=== PATIENT | female | born 1965 | race Caucasian/White ===

== ENCOUNTER 2017-04-30 16:32 | Emergency (ER) | payer BC ==
[2017-04-30 16:39] VITALS: BP 127/74
[2017-04-30] MEDS ORDERED: Albuterol/Ipratropium NEB.SOL* Albuterol 2.5 MG/Ipratropium 0.5 MG 3 ML INH ONE (17:05)
--- NOTE | 2017-04-30 17:23 | UC ---
Dori Garay Thomas, scribed for Chandni García MD on 04/30/17 at 1650 . Respiratory Complaint HPI - HPI Summary HPI Summary: The pt is a 52 y/o F presenting to [facility] c/o an upper respiratory infection that began four days ago. Symptoms include wheezing, rhinorrhea, ear pain, SOB, CORADO, eye pain, and cough. She has had intermittent nasal drainage of blood, but the drainage is mostly yellow. The patient has treated the symptoms with Tylenol FORM SETTER. The patients level of pain is 5/10. Pt denies fever, chills, and rashes. Pt state has wheeze and feels like hinders full breath. She is allergic to an antibiotic that she does not remember, although she says that she is not allergic to amoxicillin because she has had it before. PT quit smoking 5 days ago. Pt with a diabetic and states BG has been a little high with cough. She says that her was recently sick. In the past, she has used inhalers with good relief. She quit smoking five days ago. The patients PCP is Dr. Godinez. Patients medication reviewed this visit. - History of Current Complaint Chief Complaint: UCRespiratory Stated Complaint: URI Time Seen by Provider: 04/30/17 16:34 Hx Obtained From: Patient Onset/Duration: Lasting Days - onset four days ago, Still Present Timing: Constant Pain Intensity: 5 Pain Scale Used: 0-10 Numeric Character: Cough: Productive - with yellow and bloody production Aggravating Factors: Nothing Alleviating Factors: Nothing Associated Signs And Symptoms: Positive: Wheezing, URI. Negative: Fever, Chills - Allergies/Home Medications Allergies/Adverse Reactions: Allergies Allergy/AdvReac Type Severity Reaction Status Date / Time NSAIDs Allergy Swelling Verified 04/30/17 16:40 Of Face,Lips,& Throat an antibiotic Allergy Swelling Uncoded 04/30/17 16:40 Of Face,Lips,& Throat pneumonia shot Allergy Swelling Uncoded 04/30/17 16:40 Of Face,Lips,& Throat Home Medications: Home Medications Ranitidine TAB (NF) [Zantac TAB (NF)] 150 mg PO DAILY 04/30/17 [History Confirmed 04/30/17] metFORMIN* [Glucophage 1000 MG TAB *] 1,000 mg PO BID 04/30/17 [History Confirmed 04/30/17] PMH/Surg Hx/FS Hx/Imm Hx Previously Healthy: No Endocrine History: Diabetes, Hypothyroidism Respiratory History: Asthma Cancer History: Cervical Cancer Other Cancer History: 8 years ago - Surgical History Surgical History: Yes Surgery Procedure, Year, and Place: hysterectomy,. bladder sling-2010 [facility] - PER OP REPORT- USED TENSION-FREE VAGINAL TAPE- NON METAL MESH. polyps removed from stomach - Family History Known Family History: Positive: Diabetes - Social History Occupation: Employed Full-time Lives: With Family Alcohol Use: Occasionally Substance Use Type: None Smoking Status (MU): Current Some Day Smoker Review of Systems Constitutional: Negative Skin: Negative Eyes: Negative ENT: Ear Ache, Nasal Discharge, Other - Eye pain Respiratory: Shortness Of Breath, Cough, Other - Wheezing Neurological: Headache All Other Systems Reviewed And Are Negative: Yes Physical Exam Triage Information Reviewed: Yes Appearance: Well-Appearing, No Pain Distress, Well-Nourished Vital Signs: Initial Vital Signs Temp 97.0 F 04/30/17 16:35 Pulse 93 04/30/17 16:35 Resp 18 04/30/17 16:35 BP 127/74 04/30/17 16:35 Pulse Ox 95 04/30/17 16:35 Vital Signs Reviewed: Yes Eye Exam: Normal Eyes: Positive: Conjunctiva Clear ENT: Positive: Normal ENT inspection, TMs normal - left TM red and retracted right TM wnl turbinates inflammed and boggy + PND no exudate Neck exam: Normal Neck: Positive: Supple, Nontender, No Lymphadenopathy Respiratory Exam: Normal Respiratory: Positive: Chest non-tender, Wheezing - scattered wheeze throughout no accessory muscle use no retractions occasional cough Cardiovascular Exam: Normal Cardiovascular: Positive: RRR, No Murmur, Pulses Normal, Brisk Capillary Refill Abdominal Exam: Normal Abdomen Description: Positive: Nontender, No Organomegaly, Soft Bowel Sounds: Positive: Present Musculoskeletal Exam: Normal Musculoskeletal: Positive: Strength Intact Neurological Exam: Normal Psychological Exam: Normal Skin Exam: Normal UC Diagnostic Evaluation - Laboratory O2 Sat by Pulse Oximetry: 95 Re-Evaluation - Re-Evaluation First Eval Re-Evaluation Time: 17:38 Change: Improved Comment: lung clear. pt states feels better. annie not give prd second to DM. abx, secretion hygeine. albuterol MDI. return precautions discussed Respiratory Course/Dx - Course Course Of Treatment: The pt is a 52 y/o F presenting to [facility] c/o an upper respiratory infection that began four days ago. Symptoms include wheezing, rhinorrhea, ear pain, SOB, CORADO, eye pain, and cough. She has had intermittent nasal drainage of blood, but the drainage is mostly yellow. The patient has treated the symptoms with Tylenol FORM SETTER. Pt with audible wheeze on exam. + sinusisits and early left OM. Will give duoneb here. plan Rx abx. mdi. secretion precaution - Differential Dx/Diagnosis Provider Diagnoses: bronchitis. sinusitis Discharge - Discharge Plan Condition: Stable Disposition: HOME Prescriptions: Albuterol HFA INHALER* [Ventolin HFA Inhaler*] 1 puff INH Q4H PRN #1 mdi PRN Reason: wheeze Amoxicillin/Clavulanate TAB* [Augmentin TAB 875*] 875 mg PO BID #20 tab Fluconazole [Diflucan 150 MG (NF)] 150 mg PO ONCE #1 tab Spacer/Aerosol-Holding Chamber [Aerochamber Mini Aerosol] 1 mis INH Q6HR #1 mis Patient Education Materials: Otitis Media (ED), Acute Bronchitis (ED) Referrals: Tres Godinez MD [Primary Care Provider] - Additional Instructions: - Take antibiotics exactly as prescribed until gone -Use your albuterol puffer - 2 puffs ever 4-6 hours for the next 3 days - then as needed - stay well hydrated. drink plenty of non-alcoholic, non-caffinated beverages -Stay well hydrated - avoid excess caffeine and all alcohol - eat regular, healthy meals -After you have been on antibiotics for 2 days - change your toothbrush and your pillowcase. These infections are spread by secretions - do NOT share eating or drinking utensils - clean items you share with other people such as phone, computer mouse, TV remote, etc -Contact your doctor to arrange a follow-up appointment this week. Call your doctor, return here or go to the emergency department with any questions or concerns The documentation as recorded by the Dori kent Thomas accurately reflects the service I personally performed and the decisions made by me, Chandni García MD.
== END 2017-04-30 18:00 | disposition home or self-care (01) ==
LOC: UCEAST 16:32
DX: J40 Bronchitis, not specified as acute or chronic (principal); F17.210 Nicotine dependence, cigarettes, uncomplicated; J32.9 Chronic sinusitis, unspecified
CPT/HCPCS: 99212; A9270-GY; G0463

== ENCOUNTER 2017-08-17 10:19 | Emergency (ER) | payer BC ==
[2017-08-17 10:31] VITALS: BP 129/69
--- NOTE | 2017-08-17 11:00 | UC ---
Abdominal Pain Female HPI - HPI Summary HPI Summary: 52 female with the onset of lower abd pain 2-3 days ago at onset she had nausea and vomitng x 1 she has had anorexia occasional "cold sweats and hot flashes" pain is 7/10 worsens with cough or movement she had diabetes has had diverticulitis x 2 and this feels similar - History of Current Complaint Chief Complaint: UCAbdominalPain Stated Complaint: ABDOMINAL PAIN Time Seen by Provider: 08/17/17 11:00 Hx Obtained From: Patient Onset/Duration: Gradual Onset, Lasting Hours, Lasting Days Severity Initially: Severe Severity Currently: Severe Pain Intensity: 7 Pain Scale Used: 0-10 Numeric Location: Discrete At: RLQ, Discrete At: LLQ, Suprapubic Radiates: No Character: Cramping Aggravating Factor(s): Movement, Deep Breaths Alleviating Factor(s): Nothing Associated Signs and Symptoms: Positive: Diaphoresis, Fever - ???, Decreased Appetite, Nausea, Vomiting - x1 Allergies/Adverse Reactions: Allergies Allergy/AdvReac Type Severity Reaction Status Date / Time NSAIDs Allergy Swelling Verified 08/17/17 10:25 Of Face,Lips,& Throat an antibiotic Allergy Swelling Uncoded 08/17/17 10:25 Of Face,Lips,& Throat pneumonia shot Allergy Swelling Uncoded 08/17/17 10:25 Of Face,Lips,& Throat Home Medications: Home Medications Losartan TAB* [Cozaar TAB*] 25 mg PO DAILY 08/17/17 [History Confirmed 08/17/17] Rosuvastatin Calcium 5 mg PO DAILY 08/17/17 [History Confirmed 08/17/17] PMH/Surg Hx/FS Hx/Imm Hx Endocrine History: Diabetes Cardiovascular History: Hypertension GI/ History: Gastroesophageal Reflux - Surgical History Surgical History: Yes Surgery Procedure, Year, and Place: hysterectomy,. bladder sling-2010 [facility] - PER OP REPORT- USED TENSION-FREE VAGINAL TAPE- NON METAL MESH. polyps removed from stomach - Family History Known Family History: Positive: Diabetes - Social History Alcohol Use: Occasionally Substance Use Type: None Smoking Status (MU): Current Some Day Smoker Review of Systems Constitutional: Fever - valeri, Chills Skin: Negative Eyes: Negative ENT: Negative Respiratory: Negative Cardiovascular: Negative Gastrointestinal: Abdominal Pain, Vomiting, Nausea Genitourinary: Negative Motor: Negative Neurovascular: Negative Musculoskeletal: Negative Neurological: Negative Psychological: Negative Is Patient Immunocompromised?: No All Other Systems Reviewed And Are Negative: Yes Physical Exam Triage Information Reviewed: Yes Appearance: Well-Appearing, No Pain Distress, Well-Nourished Vital Signs: Initial Vital Signs Temp 98 F 08/17/17 10:28 Pulse 87 08/17/17 10:28 Resp 17 08/17/17 10:28 BP 129/69 08/17/17 10:28 Pulse Ox 100 08/17/17 10:28 Vital Signs Reviewed: Yes Eyes: Positive: Conjunctiva Clear ENT: Positive: Hearing grossly normal, Uvula midline. Negative: Nasal congestion, Nasal drainage, Trismus, Muffled voice, Hoarse voice Neck: Positive: Supple, Nontender, No Lymphadenopathy Respiratory: Positive: Lungs clear, Normal breath sounds, No respiratory distress, No accessory muscle use Cardiovascular: Positive: RRR, No Murmur Abdomen Description: Negative: Nontender - tender RLQ/SUPRAPUBIC/LLQ, CVA Tenderness (R), CVA Tenderness (L) Musculoskeletal: Positive: ROM Intact, No Edema Neurological: Positive: Alert, Muscle Tone Normal Psychological Exam: Normal Skin Exam: Normal Abd Pain Female Course/Dx - Course Course Of Treatment: uDIP- (-). advised she go to the ER for a higher level of care. she declines EMS transfer/her will drive - Differential Dx/Diagnosis Provider Diagnoses: abdominal pain of uncertain cause Discharge - Discharge Plan Condition: Stable Disposition: TRANS HIGHER LVL OF CARE FAC Referrals: Tres Godinez MD [Primary Care Provider] - As Soon As Possible Additional Instructions: I suspect diverticulitis but you are also tender over your appendix The most prudent thing to do is to go directly to the ER where your symptoms can be properly evaluated
[2017-08-17] MEDS ORDERED: Ciprofloxacin TAB* 250 MG PO ONE (11:10)
[2017-08-17] MEDS ORDERED: metroNIDAZOLE TAB* 250 MG PO ONE (11:11)
[2017-08-17] MEDS ORDERED: Ciprofloxacin TAB* 500 MG PO ONE (11:11)
== END 2017-08-17 11:20 | disposition short-term general hospital (02) ==
LOC: UCEAST 10:19
DX: R10.30 Lower abdominal pain, unspecified (principal); R11.2 Nausea with vomiting, unspecified; E11.9 Type 2 diabetes mellitus without complications; I10 Essential (primary) hypertension; K21.9 Gastro-esophageal reflux disease without esophagitis; Z90.710 Acquired absence of both cervix and uterus; Z88.6 Allergy status to analgesic agent; Z88.1 Allergy status to other antibiotic agents; Z88.7 Allergy status to serum and vaccine; Z72.0 Tobacco use
CPT/HCPCS: 81003; 99212; A9270-GY; G0463

== ENCOUNTER 2017-08-17 11:44 | Emergency (ER) | payer BC ==
[2017-08-17 11:50] VITALS: BP 136/65
--- NOTE | 2017-08-17 12:57 | RAD ---
INDICATION: Right flank abdominal pain. COMPARISON: Comparison is made with a prior CT of the abdomen and pelvis from September 13, 2015. TECHNIQUE: A CT scan of the abdomen and pelvis was performed without intravenous or oral contrast. Contiguous axial sections were obtained from the lung bases through the symphysis pubis. Images were reconstructed in the coronal and sagittal planes. FINDINGS: The lung bases are clear. No pleural effusion is present. The liver is mildly enlarged and decreased in attenuation consistent with fatty infiltration. No significant focal hepatic abnormality is seen on this noncontrast study. The spleen is normal in size. No calcified gallstones are seen. The pancreas appears to be within normal limits. The adrenal glands and kidneys are normal in size. No renal calculi or hydronephrosis is seen. No ureteral or bladder calculi are seen. The aorta is normal in caliber with mild calcific plaque present. No significant enlarged retroperitoneal lymph nodes are seen. The stomach, small and large bowel appear nondistended. The appendix is within normal limits. There is mild to moderate descending and sigmoid diverticulosis. In addition there is thickening of the wall of the proximal sigmoid colon with interstitial stranding around a diverticulum along the anterior aspect of the colon most consistent with diverticulitis. No fluid collection or abscess is seen. The patient is status post hysterectomy. No free intraperitoneal air or fluid is seen. No significant focal osseous abnormality is seen. IMPRESSION: 1. FINDINGS MOST CONSISTENT WITH DIVERTICULITIS INVOLVING THE PROXIMAL SIGMOID COLON. NO EVIDENCE FOR ABSCESS. 2. MILD HEPATOMEGALY AND HEPATIC STEATOSIS. 3. STATUS POST HYSTERECTOMY.
[2017-08-17 12:59] LABS: ABS Basophils 0.1 10^3/ul (0-0.2); ABS Eosinophils 0.1 10^3/ul (0-0.6); ABS Lymphocytes 2.5 10^3/ul (1.0-4.8); ABS Neutrophils 8.9 10^3/ul (1.5-7.7); ABS Nucleated RBC 0 10^3/ul; Eosinophil % 1.1 % (0-6); Hematocrit 43 % (35-47); Hemoglobin 14.7 g/dl (12.0-16.0); Mean Corpuscular HGB Conc 35 g/dl (31-36); Mean Corpuscular Hemoglobin 31 pg (27-31); Mean Corpuscular Volume 89 fL (80-97); Mean Platelet Volume 9 um3 (7.4-10.4); Nucleated Red Blood Cells % 0.1; Platelet Count 267 10^3/ul (150-450); Red Blood Count 4.78 10^6/ul (4.0-5.4); Red Cell Distribution Width 12 % (10.5-15); White Blood Count 12.7 10^3/ul (3.5-10.8)
[2017-08-17 13:27] LABS: EGFR Non-African American 110.5 (>60)
--- NOTE | 2017-08-17 13:55 | ED ---
Caroline Garay Julia, scribed for Nikita Stone MD on 08/17/17 at 1315 . Abdominal Pain/Female - HPI Summary HPI Summary: This patient is a 52 year old F presenting to [facility] with a chief complaint of constant lower abdominal pain since 08/15/17. The patient rates the pain 7/10 in severity. Symptoms aggravated by bending and cough. Symptoms alleviated by nothing. Patient reports decreased appetite and changes in BM patterns. Patient denies nausea. Patient states symptoms are similar to previous diverticulitis. - History of Current Complaint Chief Complaint: EDAbdPain Stated Complaint: ABD PAIN SENT FROM Time Seen by Provider: 08/17/17 12:11 Hx Obtained From: Patient Onset/Duration: Lasting Days Timing: Constant Pain Intensity: 7 Pain Scale Used: 0-10 Numeric Location: Other - lower abdominal Aggravating Factor(s): Movement, Other: - cough Alleviating Factor(s): Nothing Associated Signs and Symptoms: Positive: Other: - decreased appetite and changes in BM patterns Allergies/Adverse Reactions: Allergies Allergy/AdvReac Type Severity Reaction Status Date / Time NSAIDs Allergy Swelling Verified 08/17/17 10:25 Of Face,Lips,& Throat an antibiotic Allergy Swelling Uncoded 08/17/17 10:25 Of Face,Lips,& Throat pneumonia shot Allergy Swelling Uncoded 08/17/17 10:25 Of Face,Lips,& Throat PMH/Surg Hx/FS Hx/Imm Hx Endocrine/Hematology History: Reports: Hx Diabetes Denies: Hx Thyroid Disease Cardiovascular History: Reports: Hx Hypercholesterolemia Denies: Hx Hypertension, Hx Pacemaker/ICD Respiratory History: Denies: Hx Asthma, Hx Chronic Obstructive Pulmonary Disease (COPD) GI History: Reports: Hx Gastroesophageal Reflux Disease, Other GI Disorders - diverticulitis Denies: Hx Ulcer History: Reports: Other Problems/Disorders - bladder sling Denies: Hx Renal Disease Sensory History: Denies: Hx Hearing Aid Psychiatric History: Denies: Hx Panic Disorder - Cancer History Cancer Type, Location and Year: uterine ca 8 yrs ago with hysterectomy Hx Chemotherapy: No Hx Radiation Therapy: No - Surgical History Surgery Procedure, Year, and Place: hysterectomy. bladder sling-2010 [facility] - PER OP REPORT- USED TENSION-FREE VAGINAL TAPE- NON METAL MESH. polyps removed from stomach Infectious Disease History: No Infectious Disease History: Denies: Hx Clostridium Difficile, Hx Hepatitis, Hx Human Immunodeficiency Virus (HIV), Hx of Known/Suspected MRSA, Hx Shingles, Hx Tuberculosis, Hx Known/ Suspected VRE, Hx Known/Suspected VRSA, History Other Infectious Disease, Traveled Outside the [place] in Last 30 Days - Family History Known Family History: Positive: Diabetes - Social History Alcohol Use: Occasionally Hx Substance Use: No Substance Use Type: Reports: None Hx Tobacco Use: Yes Smoking Status (MU): Current Some Day Smoker Review of Systems Negative: Fever Positive: Abdominal Pain, Other - decreased appetite and BM changes. Negative: Nausea All Other Systems Reviewed And Are Negative: Yes Physical Exam - Summary Physical Exam Summary: Appearance: The patient is well-nourished in no acute distress and in no acute pain. Skin: The skin is warm and dry and skin color reflects adequate perfusion. HEENT: The head is normocephalic and atraumatic. The pupils are equal and reactive. The conjunctivae are clear and without drainage. Nares are patent and without drainage. Mouth reveals moist mucous membranes and the throat is without erythema and exudate. The external ears are intact. The ear canals are patent and without drainage. The tympanic membranes are intact. Neck: the neck is supple with full range of motion and non-tender. There are no carotid bruits. There is no neck vein distension. Respiratory: Chest is non-tender. Lungs are clear to auscultation and breath sounds are symmetrical and equal. Cardiovascular: Heart is regular rate and rhythm. There is no murmur or rub auscultated. There is no peripheral edema and pulses are symmetrical and equal. Abdomen: The abdomen is soft and tender in RLQ. There are normal bowel sounds heard in all four quadrants and there is no organomegaly palpated. Musculoskeletal: There is no back tenderness noted. Extremities are non-tender with full range of motion. There is good capillary refill. There is no peripheral edema or calf tenderness elicited. Neurological: Patient is alert and oriented to person, place and time. The patient has symmetrical motor strength in all four extremities. Cranial nerves are grossly intact. Deep tendon reflexes are symmetrical and equal in all four extremities. Psychiatric: The patient has an appropriate affect and does not exhibit any anxiety or depression. Triage Information Reviewed: Yes Vital Signs On Initial Exam: Initial Vitals Temp Pulse Resp BP Pulse Ox 98.2 F 72 18 136/65 98 08/17/17 11:47 08/17/17 11:47 08/17/17 11:47 08/17/17 11:47 08/17/17 11:47 Vital Signs Reviewed: Yes - Claudia Coma Scale Coma Scale Total: 15 Diagnostics - Vital Signs Vital Signs Temp Pulse Resp BP Pulse Ox 08/17/17 11:47 98.2 F 72 18 136/65 98 - Laboratory Lab Results: Lab Results 08/17/17 Range/Units 12:45 WBC 12.7 H (3.5-10.8) 10^3/ul RBC 4.78 (4.0-5.4) 10^6/ul Hgb 14.7 (12.0-16.0) g/dl Hct 43 (35-47) % MCV 89 (80-97) fL MCH 31 (27-31) pg MCHC 35 (31-36) g/dl RDW 12 (10.5-15) % Plt Count 267 (150-450) 10^3/ul MPV 9 (7.4-10.4) um3 Neut % (Auto) 70.1 (38-83) % Lymph % (Auto) 20.0 L (25-47) % Sanborn % (Auto) 7.8 (1-9) % Eos % (Auto) 1.1 (0-6) % Baso % (Auto) 1.0 (0-2) % Absolute Neuts (auto) 8.9 H (1.5-7.7) 10^3/ul Absolute Lymphs (auto) 2.5 (1.0-4.8) 10^3/ul Absolute Monos (auto) 1.0 H (0-0.8) 10^3/ul Absolute Eos (auto) 0.1 (0-0.6) 10^3/ul Absolute Basos (auto) 0.1 (0-0.2) 10^3/ul Absolute Nucleated RBC 0 10^3/ul Nucleated RBC % 0.1 Result Diagrams: 08/17/17 12:45 08/17/17 12:45 Lab Statement: Any lab studies that have been ordered have been reviewed, and results considered in the medical decision making process. - CT A/P CT Interpretation Completed By: Radiologist - CT reveals sigmoid colon diverticulitis. ED physician has reviewed this report. Abdominal Pain Fem Course/Dx - Course Course Of Treatment: Ms. Tapia presented with a couple days of low abdominal pain and was found on CT to have sigmoid diverticulitis. She didn't want anything for pain and she was given antibiotics. - Diagnoses Provider Diagnoses: Diverticulitis Discharge - Discharge Plan Condition: Stable Disposition: HOME Prescriptions: Ciprofloxacin TAB* [Cipro Tab*] 500 mg PO BID #20 tab Metronidazole [Flagyl 500 MG TAB] 500 mg PO TID #30 tab Patient Education Materials: Diverticulitis (ED) Referrals: Tres Godinez MD [Primary Care Provider] - Additional Instructions: Patient will be discharged with prescription for Ciprofloxacin and Metronidazole and instructed to follow up with PCP The patient is agreeable with this plan. RETURN TO THE EMERGENCY DEPARTMENT FOR CHANGING OR WORSENING SYMPTOMS. The documentation as recorded by the Caroline kent Julia accurately reflects the service I personally performed and the decisions made by me, Nikita Stone MD.
== END 2017-08-17 13:49 | disposition home or self-care (01) ==
LOC: ED 11:44
DX: K57.92 Diverticulitis of intestine, part unspecified, without perforation or abscess without bleeding (principal); R05 Cough; R10.30 Lower abdominal pain, unspecified; Z72.0 Tobacco use
CPT/HCPCS: 36415; 74176; 80053; 83605; 83690; 85025; 86140; 99282